=== PATIENT | male | born 1995 | race Caucasian/White ===

== ENCOUNTER 2019-06-08 19:47 | Emergency (ER) | payer BC ==
--- NOTE | 2019-06-08 19:52 | NUR ---
CALLED PT FOR TRIAGE, NO ANSWER
--- NOTE | 2019-06-08 19:55 | NUR ---
CALLED PT FOR TRIAGE, NO ANSWER
--- NOTE | 2019-06-08 20:06 | NUR ---
CALLED PT FOR TRIAGE, NO ANSWER
--- NOTE | 2019-06-08 20:46 | NUR ---
CALLED PT FOR TRIAGE, NO ANSWER
== END 2019-06-08 20:47 | disposition home or self-care (01) ==
LOC: ER 19:54
DX: Z53.21 Procedure and treatment not carried out due to patient leaving prior to being seen by health care provider (principal)